=== PATIENT | female | born 1965 | race Caucasian/White ===

== ENCOUNTER 2018-02-27 10:39 | Inpatient (IN) | payer BC ==
[2018-02-27 11:21] LABS: ADD MAN DIFF? NO
[2018-02-27] MEDS: IV NORMAL SALINE 1000ML BAG 1,000 ML IV ×2 (11:22→13:30)
[2018-02-27] MEDS: ONDANSETRON PF 4 MG/2 ML VIAL. IV ×2 (11:23→22:57)
[2018-02-27 11:26] LABS: BASO % 1 % (0-3); EOS # 0.1 x10^3/uL (0.0-0.7); EOS % 3 % (0-3); HEMATOCRIT 43.7 % (36.0-47.0); HEMOGLOBIN 14.7 g/dL (12.0-15.5); LYMPH # 0.9 x10^3/uL (1.0-4.8); LYMPH % 24 % (24-48); MEAN CORPUSCULAR HEMOGLOBIN 29 pg (25-35); MEAN CORPUSCULAR HGB CONC 34 g/dL (31-37); MEAN CORPUSCULAR VOLUME 87 fL (79-100); MONO # 0.5 x10^3/uL (0.0-1.1); MONO % 14 % (0-9); NEUT # 2.2 x10^3uL (1.8-7.7); NEUT % 57 % (31-73); PLATELET COUNT 197 x10^3/uL (140-400); RED BLOOD COUNT 5.01 x10^6/uL (3.50-5.40); RED CELL DISTRIBUTION WIDTH 13.3 % (11.5-14.5); WHITE BLOOD COUNT 3.8 x10^3/uL (4.0-11.0)
[2018-02-27 11:27] LABS: BILIRUBIN,URINE NEGATIVE (NEG); CLARITY,URINE CLEAR; COLOR,URINE YELLOW; GLUCOSE,URINE NEGATIVE (NEG); NITRITE,URINE NEGATIVE (NEG); PROTEIN,URINE NEGATIVE (NEG-TRACE); UROBILINOGEN,URINE 0.2 mg/dL (0.2 mg/dL)
[2018-02-27 11:29] LABS: ANION GAP 10 (6-14); BLOOD UREA NITROGEN 9 mg/dL (7-20); BUN/CREATININE RATIO 11 (6-20); CALCIUM 9.1 mg/dL (8.5-10.1); CARBON DIOXIDE 26 mmol/L (21-32); CHLORIDE 106 mmol/L (98-107); CREATININE 0.8 mg/dL (0.6-1.0); GFR 75.9; GLUCOSE 105 mg/dL (70-99); POTASSIUM 3.9 mmol/L (3.5-5.1); SODIUM 142 mmol/L (136-145)
[2018-02-27] MEDS: FAMOTIDINE 20 MG/2 ML VIAL IVP ×2 (11:30→21:21)
[2018-02-27 11:31] LABS: BARBITURATES NEG (NEG); BENZODIAZEPINES NEG (NEG); CANNABINOIDS NEG (NEG); COCAINE NEG (NEG); METHADONE NEG (NEG); OPIATES NEG (NEG); PHENCYCLIDINE NEG (NEG)
[2018-02-27] MEDS: DICYCLOMINE HCL 10 MG CAPSULE PO (11:32)
[2018-02-27 11:33] LABS: AMPHETAMINE/METHAMPHETAMINE NEG (NEG); ETHANOL, URINE NEG (NEG)
[2018-02-27 11:35] LABS: ALBUMIN 3.9 g/dL (3.4-5.0); ALBUMIN/GLOBULIN RATIO 1.3 (1.0-1.7); ALK PHOS 73 U/L (46-116); ALT (SGPT) 92 U/L (14-59); AST (SGOT) 43 U/L (15-37); LIPASE 85 U/L (73-393); TOTAL BILIRUBIN 0.4 mg/dL (0.2-1.0); TOTAL PROTEIN 6.9 g/dL (6.4-8.2)
[2018-02-27 11:39] LABS: BACTERIA,URINE 0 /HPF (0-FEW); RBC,URINE 0 /HPF (0-2); SQUAMOUS EPITHELIAL CELL,UR FEW /LPF; WBC,URINE 0 /HPF (0-4)
[2018-02-27] MEDS ORDERED: CONTRAST GIVEN MC (12:00)
[2018-02-27] MEDS: IOHEXOL 300 MG/ML 100ML VIAL. IV (12:07)
[2018-02-27] MEDS ORDERED: ACETAMINOPHEN 325 MG TABLET. PO (13:00)
[2018-02-27] MEDS ORDERED: fentaNYL PF VIAL 100 MCG/2 ML VIAL IV (13:00)
[2018-02-27] MEDS ORDERED: CIPROFLOXACIN 400MG PREMIX 200 ML IV (13:15)
[2018-02-27] MEDS: ACETAMINOPHEN 500 MG TABLET PO (13:35)
[2018-02-27] MEDS: CIPROFLOXACIN 400MG PREMIX 200 ML IV ×2 (13:38→21:18)
[2018-02-27] MEDS ORDERED: DICYCLOMINE HCL 10 MG CAPSULE PO (14:15)
[2018-02-27] MEDS: PANTOPRAZOLE 40 MG TABLET.DR. PO (17:08)
[2018-02-27] MEDS: HYDROcodone/APAP 5/325MG 1 TAB TABLET PO (21:57)
[2018-02-28] MEDS: HYDROcodone/APAP 5/325MG 1 TAB TABLET PO ×2 (02:52→08:19)
[2018-02-28 05:18] LABS: ADD MAN DIFF? NO
[2018-02-28 05:36] LABS: BASO % 1 % (0-3); EOS # 0.1 x10^3/uL (0.0-0.7); EOS % 2 % (0-3); HEMATOCRIT 38.8 % (36.0-47.0); HEMOGLOBIN 13.7 g/dL (12.0-15.5); LYMPH # 1.5 x10^3/uL (1.0-4.8); LYMPH % 30 % (24-48); MEAN CORPUSCULAR HEMOGLOBIN 31 pg (25-35); MEAN CORPUSCULAR HGB CONC 35 g/dL (31-37); MEAN CORPUSCULAR VOLUME 87 fL (79-100); MONO # 0.7 x10^3/uL (0.0-1.1); MONO % 14 % (0-9); NEUT # 2.8 x10^3uL (1.8-7.7); NEUT % 54 % (31-73); PLATELET COUNT 187 x10^3/uL (140-400); RED BLOOD COUNT 4.44 x10^6/uL (3.50-5.40); RED CELL DISTRIBUTION WIDTH 13.4 % (11.5-14.5); WHITE BLOOD COUNT 5.2 x10^3/uL (4.0-11.0)
[2018-02-28] MEDS: PANTOPRAZOLE 40 MG TABLET.DR. PO ×2 (05:45→16:28)
[2018-02-28 05:53] LABS: ALBUMIN 3.3 g/dL (3.4-5.0); ALBUMIN/GLOBULIN RATIO 1.3 (1.0-1.7); ALK PHOS 63 U/L (46-116); ALT (SGPT) 77 U/L (14-59); ANION GAP 7 (6-14); AST (SGOT) 32 U/L (15-37); BLOOD UREA NITROGEN 6 mg/dL (7-20); BUN/CREATININE RATIO 7 (6-20); CALCIUM 8.7 mg/dL (8.5-10.1); CARBON DIOXIDE 28 mmol/L (21-32); CHLORIDE 108 mmol/L (98-107); CREATININE 0.9 mg/dL (0.6-1.0); GFR 66.3; GLUCOSE 99 mg/dL (70-99); POTASSIUM 3.7 mmol/L (3.5-5.1); SODIUM 143 mmol/L (136-145); TOTAL BILIRUBIN 0.5 mg/dL (0.2-1.0); TOTAL PROTEIN 5.9 g/dL (6.4-8.2)
[2018-02-28] MEDS: CIPROFLOXACIN 400MG PREMIX 200 ML IV ×2 (09:32→20:48)
[2018-02-28] MEDS: FAMOTIDINE 20 MG/2 ML VIAL IVP (09:33)
[2018-02-28] MEDS: ACETAMINOPHEN 325 MG TABLET. PO ×2 (14:46→22:15)
[2018-02-28] MEDS: ONDANSETRON PF 4 MG/2 ML VIAL. IV ×2 (14:47→20:48)
[2018-03-01] MEDS: PANTOPRAZOLE 40 MG TABLET.DR. PO (06:43)
[2018-03-01] MEDS: ONDANSETRON PF 4 MG/2 ML VIAL. IV (06:50)
[2018-03-01] MEDS: CIPROFLOXACIN 400MG PREMIX 200 ML IV (09:00)
[2018-03-01] MEDS ORDERED: ONDANSETRON ODT 4 MG TAB.RAPDIS. PO (11:15)
[2018-03-01] MEDS: LACTOBACILLUS RHAMNOSUS GG 1 CAPSULE. PO (14:00)
== END 2018-03-01 14:52 | disposition home or self-care (01) | DRG 392 ==
LOC: ER 10:39 → 4 NORTH 12:55
DX: K52.9 Noninfective gastroenteritis and colitis, unspecified (principal); C85.90 Non-Hodgkin lymphoma, unspecified, unspecified site; K76.0 Fatty (change of) liver, not elsewhere classified; K50.90 Crohn's disease, unspecified, without complications; E66.9 Obesity, unspecified; G89.29 Other chronic pain; K21.9 Gastro-esophageal reflux disease without esophagitis; K57.90 Diverticulosis of intestine, part unspecified, without perforation or abscess without bleeding; M19.90 Unspecified osteoarthritis, unspecified site; Z68.36 Body mass index [BMI] 36.0-36.9, adult; Z80.0 Family history of malignant neoplasm of digestive organs; Z81.1 Family history of alcohol abuse and dependence; Z83.2 Family history of diseases of the blood and blood-forming organs and certain disorders involving the immune mechanism; Z88.5 Allergy status to narcotic agent; Z90.710 Acquired absence of both cervix and uterus; Z92.21 Personal history of antineoplastic chemotherapy; M70.62 Trochanteric bursitis, left hip
CPT/HCPCS: 36415; 74177; 80053; 80307; 81001; 83690; 85025; 96374; 96375; 99285; 99285-25; J0744; J2405; J3490; J7030; Q9967; S0028